=== PATIENT | female | born 1980 | race African-American/Black ===

== ENCOUNTER 2019-03-27 23:45 | Emergency (ER) | payer OTHER, SELFPAY ==
[2019-03-28] MEDS ORDERED: Clindamycin 150 MG CAP ONE (00:04)
[2019-03-28] MEDS ORDERED: Carbamide Peroxide 6.5% Otic Drops 15 ml Bottle ONE (00:04)
[2019-03-28] MEDS ORDERED: Ketorolac Tromethamine 30 MG/ML VIAL ONE (00:04)
[2019-03-28] MEDS ORDERED: Dexamethasone 10 MG/ML VIAL ONE (00:07)
== END 2019-03-28 00:17 | disposition home or self-care (01) ==
LOC: ERS 23:45
DX: K02.9 Dental caries, unspecified (principal)
CPT/HCPCS: 96372; 99282; J1100; J1885

== ENCOUNTER 2021-06-13 14:59 | Emergency (ER) | payer BC, SELFPAY ==
[~2021-06-13 14:59] MED LIST: Iopamidol-370 76% 500 ML 1 ML ONE
[2021-06-13 15:40] LABS: #Basophils 0.1 thou/uL (0.0-0.2); #Lymphocytes 1.5 thou/uL (1.20-3.40); #Monocytes 0.7 thou/uL (0.11-0.59); %Basophils 0.5 % (0.0-1.0); %Eosinophils 0.4 % (0.0-10.0); %Lymphocytes 14.7 % (21.0-51.0); %Monocytes 6.6 % (0.0-10.0); %Neutrophils 77.8 % (42.0-75.0); Hemoglobin 11.9 g/dL (12.0-16.0); Mean Corpuscular HGB CONC 31.3 g/dL (32.0-36.0); Mean Corpuscular Hemoglobin 20.9 pg (27.0-31.0); Mean Corpuscular Volume 66.8 fL (78.0-98.0); Platelet Count 284 thou/uL (130-400); RBC Distribution Width 18.1 % (11.5-14.5); White Blood Cell (WBC) Count 10.3 thou/uL (4.8-10.8)
[2021-06-13] MEDS ORDERED: Acetaminophen 500 MG TAB ONE (15:45)
[2021-06-13 15:48] LABS: Prothrombin Time 13.6 sec (12.0-14.7)
[2021-06-13 15:49] LABS: PTT 39.8 sec (22.9-36.1)
[2021-06-13 15:52] LABS: BHCG - Serum Negative (NEGATIVE); Pregs Control Background? CLEAR/WHITE (CLR/WHITE); Pregs Control Bar Appear? YES (CONTROL BAR)
[2021-06-13] MEDS ORDERED: Ketorolac Tromethamine 30 MG/ML VIAL ONE (15:53)
[2021-06-13 15:58] LABS: Anisocytosis SLIGHT = 6-15 cells (100X) (0-5/hpf); Elliptocytes SLIGHT = 2-5 cells (100X) (0-1/hpf); Hypochromia SLIGHT = 6-15 cells (100X) (0-5/hpf); Large Platelets SLIGHT; MDiff Complete? YES; Microcytosis MODERATE=15-30 cells (100X) (0-5/hpf); Platelet Morphology Comment Appears Adequate; Polychromasia SLIGHT = 2-3 cells (100X) (0-2/hpf); Tear Drops SLIGHT = 2-5 cells (100X) (0-1/hpf)
[2021-06-13 16:05] LABS: ALT (SGPT) 12 U/L (8-55); AST (SGOT) 11 U/L (5-34); Albumin 3.8 g/dL (3.5-5.0); Alkaline Phosphatase 103 U/L (40-110); Anion Gap 15 mmol/L (10-20); BUN (Urea Nitrogen) 13 mg/dL (7.0-18.7); Bilirubin, Total 0.5 mg/dL (0.2-1.2); Calc. Creatinine Clearance 0 mL/min (70-130); Calcium 9.5 mg/dL (7.8-10.44); Carbon Dioxide 25 mmol/L (22-29); Chloride 103 mmol/L (98-107); Globulin 4.1 g/dL (2.4-3.5); Glucose 123 mg/dL (70-105); Potassium 3.9 mmol/L (3.5-5.1); Protein, Total 7.9 g/dL (6.0-8.3); Sodium 139 mmol/L (136-145)
[2021-06-13 17:02] LABS: Bacteria/HPF 2+ HPF (None Seen); Bilirubin Negative (Negative); Blood, Urine Trace (Negative); Clarity Clear (Clear); Glucose, Urine (Dipstick) Normal (Negative); Ketone, Urine Negative (Negative); Leukocyte 250 Leu/uL (Negative); Mucous/LPF Rare LPF (<2+); Nitrite Negative (Negative); Protein, Urine (Dipstick) 20 mg/dL (Neg-Trace); Specific Gravity, Urine 1.018 (1.002-1.036); Squamous Epithelial 0-3 HPF (0-3); Urobilinogen Normal mg/dL (Less than 2); WBC/HPF 21-50 HPF (0-3); pH, Urine 6.5 (5.0-9.0)
== END 2021-06-13 17:55 | disposition home or self-care (01) ==
LOC: ERS 14:59
DX: N12 Tubulo-interstitial nephritis, not specified as acute or chronic (principal); I10 Essential (primary) hypertension
CPT/HCPCS: 71045; 74177; 80053; 81003; 81015; 82550; 83605; 83880; 84484; 84703; 85025; 85610; 85730; 87040; 87077; 87086; 87186; 93005; 94760; 96374; J1885; Q9967

== ENCOUNTER 2022-10-10 21:39 | Emergency (ER) | payer BC | END 2022-10-11 01:20 | disposition home or self-care (01) | LOC: ERS 21:39 | DX: S82.102A Unspecified fracture of upper end of left tibia, initial encounter for closed fracture (principal); I10 Essential (primary) hypertension; W18.30XA Fall on same level, unspecified, initial encounter ==

== ENCOUNTER 2023-01-19 11:51 | Emergency (ER) | payer BC ==
[2023-01-19] MEDS ORDERED: Morphine 4 MG/ML VIAL ONE (12:27)
[2023-01-19] MEDS ORDERED: predniSONE 20 MG TAB ONE (12:28)
[2023-01-19] MEDS ORDERED: Ketorolac Tromethamine 30 MG/ML VIAL ONE (12:28)
== END 2023-01-19 15:24 | disposition home or self-care (01) ==
LOC: ERS 11:51
DX: S39.012A Strain of muscle, fascia and tendon of lower back, initial encounter (principal); I10 Essential (primary) hypertension
CPT/HCPCS: 72100; 96372; J1885; J2270; J7512

== ENCOUNTER 2023-04-20 22:32 | Emergency (ER) | payer BC ==
[2023-04-20] MEDS ORDERED: Amoxicillin/Potassium Clav 875 MG TAB ONE (23:05)
== END 2023-04-21 00:25 | disposition home or self-care (01) ==
LOC: ERS 22:32
DX: K04.7 Periapical abscess without sinus (principal); I10 Essential (primary) hypertension
CPT/HCPCS: 99282

== ENCOUNTER 2024-08-23 22:17 | Emergency (ER) | payer BC, OTHER ==
[2024-08-23 23:00] LABS: #Basophils 0.06 10x3/uL (0.0-0.2); %Eosinophils 1.8 % (0.0-10.0); %Lymphocytes 39.7 % (21.0-51.0); %Monocytes 11.4 % (0.0-10.0); %Neutrophils 45.9 % (42.0-75.0); Hematocrit 39.6 % (36.0-47.0); Hemoglobin 12.7 g/dL (12.0-16.0); Mean Corpuscular HGB CONC 32.1 g/dL (32.0-36.0); Mean Corpuscular Hemoglobin 23.8 pg (27.0-31.0); Mean Corpuscular Volume 74.2 fL (78.0-98.0); Mean Platelet Volume 9.4 fL (7.4-10.4); Platelet Count 337 10x3/uL (130-400); RBC Distribution Width 14.8 % (11.5-14.5); Red Blood Cell (RBC) Count 5.34 mill/uL (4.20-5.40)
[2024-08-23 23:17] LABS: ALT (SGPT) 14 U/L (8-55); AST (SGOT) 16 U/L (5-34); Albumin 3.6 g/dL (3.5-5.0); Alkaline Phosphatase 117 U/L (40-110); Anion Gap 14 mmol/L (10-20); BUN (Urea Nitrogen) 14 mg/dL (7.0-18.7); Bilirubin, Total 0.2 mg/dL (0.2-1.2); Calc. Creatinine Clearance 0 mL/min (70-130); Calcium 8.9 mg/dL (7.8-10.44); Carbon Dioxide 25 mmol/L (22-29); Chloride 105 mmol/L (98-107); Estimated GFR 109; Globulin 3.4 g/dL (2.4-3.5); Glucose 114 mg/dL (70-105); Lipase 13 U/L (8-78); Potassium 3.5 mmol/L (3.5-5.1); Sodium 140 mmol/L (136-145)
[2024-08-23 23:22] LABS: Troponin I Less than 0.010 ng/mL (< 0.028)
[2024-08-24] MEDS ORDERED: Lidocaine Viscous Sol 2% 15 ml UD Cup ONE (00:09)
[2024-08-24] MEDS ORDERED: Famotidine 20 MG TAB ONE (00:09)
[2024-08-24] MEDS ORDERED: Mag-Al 1200 mg/1200 mg/30 ML UDCUP ONE (00:09)
[2024-08-24 02:31] LABS: Troponin I Less than 0.010 ng/mL (< 0.028)
== END 2024-08-24 03:36 | disposition home or self-care (01) ==
LOC: ERS 22:17
DX: R07.9 Chest pain, unspecified (principal); I10 Essential (primary) hypertension; R73.03 Prediabetes
CPT/HCPCS: 36415; 71045; 80053; 83690; 83735; 83880; 84484; 85025; 93005

== ENCOUNTER 2024-09-03 02:23 | Emergency (ER) | payer OTHER | END 2024-09-03 03:57 | disposition home or self-care (01) | LOC: ERS 02:23 | DX: M54.50 Low back pain, unspecified (principal); I10 Essential (primary) hypertension | CPT/HCPCS: 99283 ==